=== PATIENT | female | born 1970 | race Caucasian/White ===

== ENCOUNTER 2019-07-11 21:10 | Emergency (ER) | payer MEDICAID ==
[~2019-07-11] VITALS: Ht 162.6 cm; Wt 93.0 kg
--- NOTE | 2019-07-11 21:33 | NUR ---
PT HAD DOUBLE MASCECTOMY 3 YEARS AGO. HAS HAD MULTIPLE RECONSTUCTIVE SURGERIES SINCE. THE LAST ONE WAS 06/03. SUGICAL SITE OPENED UP A FEW DAYS AGO AND DRAINING PURULANT DRAINAGE. PT STATES FEVER STARTED TODAY. CONNECTED TO MONITORING. FAMILY AT BEDSIDE. MD AT BEDSIDE. AWAITING ORDERS AT THIS TIME.
[2019-07-11] MEDS ORDERED: SODIUM CHLORIDE 0.9% 1,000ML IVBOLUS ONE (22:00)
[2019-07-11] MEDS ORDERED: MORPHINE SULFATE 4 MG/ML, 1ML IVPush PRN (22:00)
[2019-07-11] MEDS ORDERED: VANCOMYCIN PER PHARMACY MC PRN (22:00)
[2019-07-11] MEDS ORDERED: VANCOMYCIN 1,800 MG in SODIUM CHLORIDE 0.9% 250 ML IV ONE (22:00)
[2019-07-11] MEDS ORDERED: ONDANSETRON 2MG/ML, 2ML IVPush ONE (22:00)
[2019-07-11] MEDS ORDERED: AMPICILLIN/SULBACTAM 3 GM in SODIUM CHLORIDE 0.9% 100 ML IV ONE (22:00)
[2019-07-11 22:16] LABS: BASOPHILS # (AUTO) 0.03 x10^3/uL (0-0.1); BASOPHILS % (AUTO) 0 % (0-1); EOSINOPHILS # (AUTO) 0.11 x10^3/uL (0-0.4); EOSINOPHILS % (AUTO) 1 % (1-7); LYMPHOCYTES # (AUTO) 1.88 x10^3/uL (1-3.4); LYMPHOCYTES % (AUTO) 21 % (22-44); MD NO; MEAN CORPUSCULAR HGB CONC 32.5 g/dL (32.4-35.8); MEAN CORPUSCULAR VOLUME 86.2 fL (80-100); MEAN PLATELET VOLUME 8.2 fL (7.4-10.4); MONOCYTES # (AUTO) 0.95 x10^3/uL (0.2-0.8); MONOCYTES % (AUTO) 11 % (2-9); NEUTROPHILS # (AUTO) 5.84 x10^3/uL (1.8-6.8); NEUTROPHILS % (AUTO) 66 % (42-75); PLATELET COUNT 248 x10^3/uL (130-400); RED BLOOD COUNT 3.63 x10^6/uL (3.82-5.3); RED CELL DISTRIBUTION WIDTH 15.1 % (9.6-15.2)
--- NOTE | 2019-07-11 22:20 | NUR ---
IV START. IV ABX STARTED AFTER 2 SETS BLOOD CX DRAWN.
[2019-07-11] MEDS ORDERED: ONDANSETRON 2MG/ML, 2ML ONE (22:24)
[2019-07-11] MEDS ORDERED: MORPHINE SULFATE 4 MG/ML, 1ML ONE (22:24)
[2019-07-11 22:27] LABS: ALBUMIN 2.9 g/dL (3.4-5.0); ANION GAP 6 mmol/L (5-15); CALCIUM 8.5 mg/dL (8.5-10.1); CHLORIDE 96 mmol/L (98-107); CREATININE 0.92 mg/dL (0.55-1.02)
--- NOTE | 2019-07-11 22:29 | NUR ---
MEDS ADMINSITERED PER OCT. PT AMBULATED TO RESTROOM WITH STEADY GAIT.
[2019-07-11] MEDS ORDERED: POTASSIUM CHLORIDE 40 MEQ in SODIUM CHLORIDE 0.9% 500 ML IV ONE (23:00)
--- NOTE | 2019-07-11 23:17 | NUR ---
IV SITE INFILTRATED. NEW IV START AND ABX CONTINUED. PT RESTING COMFORTABLY ON GURNEY. NADN.
--- NOTE | 2019-07-11 23:45 | NUR ---
MEDS REQUESTED FROM PHARMACY.
--- NOTE | 2019-07-12 00:03 | NUR ---
REPORT GIVEN TO KARELY ZAIDI.
[2019-07-12] MEDS ORDERED: POTASSIUM CHLORIDE 20 MEQ TAB.ER.PRT ONE (01:20)
[2019-07-12 01:25] VITALS: BP 109/61
[2019-07-12] MEDS ORDERED: POTASSIUM CHLORIDE 20 MEQ TAB.ER.PRT PO ONE (01:30)
--- NOTE | 2019-07-12 01:45 | NUR ---
RN received report and assumed patient care. Informed patient that IV piggyback potassium can take 4 hours. RN checked in with [facility]. Patient instead only adminstered 20mEq iv and given the rest PO instead. RN to bedside, patient agreeable to discharge with known plan to surgery. Called patient's , received verbalization that patient would be
--- NOTE | 2019-07-12 02:02 | NUR ---
pt ready for dc. awaiting arrival of at this time.
== END 2019-07-12 02:26 | disposition home or self-care (01) ==
LOC: ED 07-12 00:21
DX: T81.49XA Infection following a procedure, other surgical site, initial encounter (principal); L03.313 Cellulitis of chest wall; R11.10 Vomiting, unspecified; F17.200 Nicotine dependence, unspecified, uncomplicated; Z85.3 Personal history of malignant neoplasm of breast
CPT/HCPCS: 36415; 71045; 80048; 82040; 83605; 85025; 87040; 96365; 96366; 96368; 96375; 99284; J0295; J2270; J2405; J3370; J3480; J7030; J7040; J7050; 96361